=== PATIENT | male | born 1995 | race Two or more races ===

== ENCOUNTER 2018-08-05 02:31 | Emergency (ER) | payer SELFPAY ==
[2018-08-05 02:35] VITALS: BP 116/77
--- NOTE | 2018-08-05 02:42 | ER Report ---
History and Physical Time Seen By MD: 02:34 HPI/ROS CHIEF COMPLAINT: Intoxicated, left eyebrow laceration HISTORY OF PRESENT ILLNESS: 22-year-old male brought in by a friend who found him fallen down outside a bar. He has a left eyebrow laceration. Patient admits to copious alcohol tonight. Patient denies headache. Patient denies photophobia. Patient denies nausea or vomiting to suggest head injury or concussion. She denies neck pain. REVIEW OF SYSTEMS: Unable to obtain due to altered mental status Allergies: Coded Allergies: No Known Drug Allergies (Unverified , 08/05/18) Reviewed Nurses Notes: Yes Old Medical Records Reviewed: Yes Constitutional Vital Sign - Last 24 Hours 08/05/18 02:35 Temp 98.5 Pulse 125 Resp 18 B/P (MAP) 116/77 Pulse Ox 90 O2 Delivery Room Air Physical Exam General Appearance: The patient is alert, has no immediate need for airway protection and no current signs of toxicity. Vital signs stable, afebrile, pulse ox normal, palpation of the head and neck reveals no other tenderness or trauma HEENT: Pupils equal and round no injection. PERRLA, TMs normal, oropharynx without dental trauma Respiratory: Chest is non tender, lungs are clear to auscultation. No chest wall tenderness Cardiac: regular rate and rhythm Gastrointestinal: Abdomen is soft and non tender, no masses, bowel sounds normal. Musculoskeletal: Neck: Neck is supple and non tender. Extremities have full range of motion and are non tender. Skin: No rashes or lesions. DIFFERENTIAL DIAGNOSIS: After history and physical exam differential diagnosis was considered for head injury including but not limited to concussion, skull fracture, intraparenchymal contusion, subarachnoid, subdural and epidural hematoma. Additionally, eyebrow laceration, eyebrow contusion Medical Decision Making ED Course/Re-evaluation ED Course Patient was admitted to an examination room. H&P was done. The differential diagnoses was considered. Primary and 2nd degree surveys were performed. Patient without any obvious serious injuries except for an eyebrow laceration. His facial bones are intact. There is no tenderness on aggressive palpation of his head and neck. There is no tenderness on chest wall palpation. He has full range of motion of Perla remedies. Agents laceration was repaired as noted below. He is given a Tdap vaccine. Wound care was discussed. Head injury precautions were reviewed. Procedure: Laceration repair. Verbal consent was obtained from the patient. The 2.0 cm laceration on the left upper lateral eyelid was anesthetized in the usual fashion. The wound was scrubbed, draped and explored to its base with a gloved finger. There were no deep structures involved. The wound was repaired with 5-0 Prolene 4 sutures. The wound repair was simple. The procedure was performed by myself. Wound care was discussed. Decision to Disposition Date: Aug 05, 2018 Decision to Disposition Time: 02:42 Depart Departure Latest Vital Signs Vital Signs Date Time Temp Pulse Resp B/P (MAP) Pulse Ox O2 Delivery O2 Flow Rate FiO2 08/05/18 02:35 98.5 125 18 116/77 90 Room Air Impression: Primary Impression: Head injury Additional Impressions: Laceration of left eyebrow Alcohol intoxication Condition: Improved Disposition: HOME OR SELF-CARE Patient Instructions: Alcohol Intoxication (ED), Facial Laceration (ED), Head Injury (ED) Additional Instructions: Perform daily wound care, gently cleanse her wound with baby shampoo and apply a thin layer of anabolic ointment Have your stitches removed in 5 days Problem Qualifiers Primary Impression: Head injury Encounter type: initial encounter Qualified Codes: S09.90XA - Unspecified injury of head, initial encounter Additional Impressions: Laceration of left eyebrow Encounter type: initial encounter Qualified Codes: S01.112A - Laceration without foreign body of left eyelid and periocular area, initial encounter Alcohol intoxication Complication of substance-induced condition: uncomplicated Qualified Codes: F10.920 - Alcohol use, unspecified with intoxication, uncomplicated MADDY RIOS DO Aug 05, 2018 02:42
[2018-08-05] MEDS ORDERED: DIPHTH/TETANUS/ACEL. PERTUSSIS IM ONLY ONE (02:45)
== END 2018-08-05 03:05 | disposition home or self-care (01) ==
LOC: ER 03:03
DX: S01.112A Laceration without foreign body of left eyelid and periocular area, initial encounter (principal); F10.920 Alcohol use, unspecified with intoxication, uncomplicated
CPT/HCPCS: 90471; 90715; 99283